=== PATIENT | male | born 1960 | race Caucasian/White ===

== ENCOUNTER 2016-09-02 13:25 | Inpatient (IN) | payer OTHER ==
[2016-09-02] MEDS ORDERED: Sodium Chloride 0.9% 1,000 ML PRIMARY IV ONE (13:43)
[2016-09-02] MEDS ORDERED: NORMAL SALINE 10 ML SYRINGE FLUSH IVP PRN ×2 (13:43→18:42)
--- NOTE | 2016-09-02 14:01 | PDOC ---
General Adult HPI - General Chief Complaint: General Medical Stated Complaint: TIRED FOR 3 WEEKS AND SORE ON RIGHT FOOT Date Seen by Provider: 09/02/16 Time Seen by Provider: 13:40 Source: POSITIVE: Patient Exam Limitations: POSITIVE: No limitations Nurse's Notes Reviewed & Considered: Yes - History of Present Illness Initial Comment: The patient is a 56-year-old male who presents to the emergency department with increased pain and swelling to the top of his right foot. He states that for 5 days ago he noticed some increased redness and swelling to the top of his right foot. The skin apparently started to peel and this morning opened up and drained. He reports increased pain over the past 24 hours especially with weightbearing. He denies any associated fevers or chills. He is a diabetic and his blood sugar this morning was 309. He denies any specific injury to the foot. He did recently travel to visit family over the holidays. He does have a history of gout for 30 years. Initially he thought he was just having an increased gout flare and took some extra allopurinol. Have you received a tetanus shot in the past 10 years?: No - Patient Home Medications Home Medications: Home Medications Allopurinol 300 mg PO DAILY 09/02/16 Aspirin [Aspir-Low] 81 mg PO DAILY 09/02/16 Captopril/Hydrochlorothiazide [Captopril-Hctz 25-25 mg Tablet] 1 each PO DAILY 09/02/16 Efinaconazole [Jublia] 09/02/16 Gemfibrozil 1,200 mg PO DAILY 09/02/16 Insulin Aspart [Novolog Flexpen] 09/02/16 Insulin Glargine SoloStar Inj [Lantus SoloStar Inj] 50 unit IM BID 09/02/16 - Patient Allergies Allergies/Adverse Reactions: Allergies Allergy/AdvReac Type Severity Reaction Status Date / Time No Known Allergies Allergy Unverified 09/02/16 13:36 Past Medical History - heen HEENT History: Denies History Cardiovascular History: Hypertension, Hyperlipidemia Respiratory History: Denies History Gastrointestinal History: Denies History Genitourinary History: Denies History Endocrine History: Type 2 Diabetes (insulin) Musculoskeletal History: Gout Neurological History: Denies History Blood Disorders: Denies History Psychiatric History: Denies History History of Sexually Transmitted Diseases: No Male Reproductive History: Denies History Cancer History: Denies History In Past Year Been Physically Harmed or Verbally Threatened: No History of MDRO: No Tobacco Use: Former Smoker Alcohol Use: Heavy Type of alcohol normally used: Hard Liquor How much alcohol do you normally drink a day?: rosa and water every night Substance Use Type: None Previous Surgical History: No Significant Family History: No pertinent family hx Past Medical History Reviewed: Reviewed - No Changes ROS - Limitations ROS Limitations: No Limitations Constitution: REPORTS: Other (He does report generalized fatigue for the past several weeks). DENIES: Chills, Fever Cardiovascular: REPORTS: Denies Cardiac Symptoms Respiratory: REPORTS: Denies Resp Symptoms Neurological: REPORTS: Denies Neuro Symptoms Gastrointestinal: REPORTS: Denies GI Symptoms Endocrine: REPORTS: Fatigue Eyes: REPORTS: Denies Symptoms ENT: REPORTS: Denies Symptoms General Adult Exam - General Appearance General Appearance: POSITIVE: Alert, Cooperative, No Acute Distress - HEENT HEENT: POSITIVE: Head Inspection Nml - Neck Neck: POSITIVE: Normal Inspection. NEGATIVE: Lymphadenopathy - Respiratory Respiratory: POSITIVE: No Respiratory Distress, Breath Sounds Normal - Cardiovascular Cardiovascular: POSITIVE: Regular Rate & Rhythm, No Murmur Peripheral Pulses: Dorsalis-pedis (R): 2+, Dorsalis-pedis (L): 2+ - Abdomen Abdomen: Soft: (All Quadrants), Denies Tenderness: (All Quadrants), No Distention: (All Quadrants) - Skin Skin: POSITIVE: Normal Color, No Rash - Extremities Additional Extremities Details: He does have venous stasis changes in the lower extremities bilaterally, examination of the right foot reveals an area of erythema and induration extending over the dorsum of the foot. There is some peeling skin. There is also an open area just proximal to the great toe on the dorsum of his foot. There is a palpable fluid collection just lateral to this open area. - Neurological / Psychological Neurological: POSITIVE: Other (No focal neurologic deficits) General Adult Progress - Results Reviewed by me Xrays/CTs/US Reviewed by me: Yes Discussed with Radiologist: Yes Radiology Findings: There is some erosion of the first metatarsal suspicious for osteomyelitis per radiologist. This was not initially appreciated on my evaluation of the x-ray prior to the radiology reading. Lab Results Reviewed: Yes Lab Results:: Laboratory Results 09/02/16 09/02/16 Range/Units 13:44 13:55 WBC 15.16 H (4.8-10.8) 10^3/uL RBC 4.88 (4.70-6.10) 10^6/uL Hgb 15.2 (14.0-18.0) g/dL Hct 44.3 (42.0-52.0) % MCV 90.8 H (80-90) FL MCH 31.1 H (27-31) PG MCHC 34.3 (33-37) g/dL RDW Std Deviation 46.1 (39-50) fL RDW Coeff of Lyndsey 14.1 (11.5-14.5) % Plt Count 194 (140-350) 10*3/uL MPV 11.0 (7.4-12.2) FL Immature Gran % (Auto) 0.5 (0-5) % Neut % (Auto) 87.6 H (50-80) % Lymph % (Auto) 5.3 L (10-50) % [place] % (Auto) 6.4 (5-15) % Eos % (Auto) 0.1 (0-8) % Baso % (Auto) 0.1 (0-1) % Immature Gran # (Auto) 0.07 10*3/UL Neut # (Auto) 13.28 10*3/UL Lymph # (Auto) 0.80 10*3/uL [place] # (Auto) 0.97 H (0.3-0.8) 10*3/UL Eos # (Auto) 0.02 10*3/UL Baso # (Auto) 0.02 10*3/UL WBC Morphology Comment Normal morphology (NORM) Plt Morphology Comment Normal morphology (NORM) RBC Morph Comment Normal morphology (NORM) ESR 69 H (0-15) MM/HR Sodium 126 L (135-145) meq/L Potassium 4.0 (3.8-5.2) meq/L Chloride 91 L (98-112) meq/L Carbon Dioxide 23 (23-33) meq/L Anion Gap 12 (5-20) BUN 31 H (7-22) mg/dL Creatinine 1.1 (0.70-1.50) mg/dL Estimated GFR > 60 (>60 ml/min/1.73m(2)) BUN/Creatinine Ratio 28.18 H (6-20) Glucose 340 H (78-110) mg/dL Calculated Osmolality 281.0 (267-292) mOsm/kg Lactic Acid 3.1 H (0.70-2.10) MMOL/L Uric Acid 5.2 (3.8-8.5) mg/dl Calcium 8.1 L (8.7-10.7) mg/dL Total Bilirubin 2.7 H (0.3-1.2) mg/dL AST 53 (21-57) IU/L ALT 49 (21-72) IU/L Alkaline Phosphatase 245 H (38-126) IU/L C-Reactive Protein 18.3 H (0.0-0.9) mg/dL Total Protein 7.5 (6.1-8.0) g/dL Albumin 2.8 L (3.5-4.8) g/dL Globulin 4.7 H (2.50-4.10) g/dL Albumin/Globulin Ratio 0.50 L (1.3-2.0) mg/g - Patient's Progress MDM / ED Course: Blood cultures and lactate were obtained with IV start. Bedside ultrasound was performed on the right foot and showed a large abscess cavity to the dorsum of the foot which appeared to be just under the surface of the skin. I had evaluated the patient's x-rays and did not appreciate any obvious sign of osteomyelitis however the radiology reading was suspicious for possible osteomyelitis in the first metatarsal. I had contacted Dr. Genao who is on- call for orthopedic surgery. He had made plans to take the patient to the operating room for incision and drainage of the abscess. In addition the hospitalist was contacted regarding admission for IV antibiotics which will be started after the I&D as well as diabetes management. These findings were discussed with the patient and he is in agreement with this plan. - Consult Consult (If Yes, Name of Consulting MD & Time Called): Yes (Dr. Genao at 1530) Consulting MD will see pt:: POSITIVE: [facility] Admit Counseled: POSITIVE: Patient, Family, RE: Lab Results, RE: Radiology Results, RE : DX Patient Care Time - Estimated PCT Patient Care Time (In Minutes): 50 Vital Signs - Recent Vital Signs Vital Signs: Vital Signs (Last 8 hours) Temp Pulse Resp BP Pulse Ox 09/02/16 16:05 98.6 F 96 22 122/99 94 09/02/16 13:39 97.6 F 104 H 22 135/92 91 - VS Reviewed Vital Signs Reviewed: Yes Discharge Clinical Impression: Abscess of right foot, Cellulitis of right foot, Diabetes mellitus, Hyperglycemia Discharge Disposition: Admit to Inpatient Condition: Fair Date Decision to Admit to Inpatient: 09/02/16 Time Decision to Admit to Inpatient: 16:00
[2016-09-02 14:07] LABS: BASOPHILS # (AUTO) 0.02 10*3/UL; BASOPHILS % (AUTO) 0.1 % (0-1); EOSINOPHILS % (AUTO) 0.1 % (0-8); HEMATOCRIT 44.3 % (42.0-52.0); HEMOGLOBIN 15.2 g/dL (14.0-18.0); IMM GRAN % (AUTO) 0.5 % (0-5); IMM GRAN# (AUTO) 0.07 10*3/UL; LYMPHOCYTES % (AUTO) 5.3 % (10-50); MEAN CORPUSCULAR HEMOGLOBIN 31.1 PG (27-31); MEAN CORPUSCULAR HGB CONC 34.3 g/dL (33-37); MONOCYTES # (AUTO) 0.97 10*3/UL (0.3-0.8); MONOCYTES % (AUTO) 6.4 % (5-15); NEUTROPHILS # (AUTO) 13.28 10*3/UL; NEUTROPHILS % (AUTO) 87.6 % (50-80); RDW COEFFICIENT OF VARIATION 14.1 % (11.5-14.5); RED BLOOD COUNT 4.88 10^6/uL (4.70-6.10); WHITE BLOOD COUNT 15.16 10^3/uL (4.8-10.8)
[2016-09-02 15:08] LABS: PLATELET MORPHOLOGY COMMENT NORMAL MORPHOLOGY (NORM)
[2016-09-02 15:27] LABS: ASPARTATE AMINO TRANSFERASE 53 IU/L (21-57); BILIRUBIN,TOTAL 2.7 mg/dL (0.3-1.2); BLOOD UREA NITROGEN 31 mg/dL (7-22); BUN/CREATININE RATIO 28.18 (6-20); CALCIUM 8.1 mg/dL (8.7-10.7); CHLORIDE 91 meq/L (98-112); CREATININE 1.1 mg/dL (0.70-1.50); EST GLOMERULAR FILTRATION > 60 (>60 ml/min/1.73m(2)); GLUCOSE 340 mg/dL (78-110); LACTATE 3.1 MMOL/L (0.70-2.10); SODIUM 126 meq/L (135-145); TOTAL PROTEIN 7.5 g/dL (6.1-8.0)
--- NOTE | 2016-09-02 15:27 | DI ---
HISTORY: Infection in the dorsal right foot. Discoloration. Weeping sore over the 1st metatarsal. COMPARISON: None available. FINDINGS: There is soft tissue edema in the base of the 1st metatarsal with bony erosion; suspicious for osteomyelitis. There is evidence of periarticular bony erosion in the 1st metatarsal phalangeal joint; can be seen in inflammatory arthritis. Septic arthritis cannot be excluded. No acute fractu re or subluxation seen. IMPRESSION: 1. There is soft tissue edema in the base of the 1st metatarsal with bony erosion; suspicious for ost eomyelitis. 2. Evidence of periarticular bony erosion in the 1st metatarsal phalangeal joint; can be seen in infl ammatory arthritis. Septic arthritis cannot be excluded. Please correlate with history. 3. No acute fracture or subluxation seen.
[2016-09-02 15:47] LABS: C-REACTIVE PROTEIN 18.3 mg/dL (0.0-0.9)
[2016-09-02] MEDS ORDERED: LIDOCAINE 2%/ EPI 1:200,000 - 20 ML VIAL ONE (16:38)
[2016-09-02] MEDS ORDERED: MIDAZOLAM 5 MG/1 ML ONE (16:38)
[2016-09-02] MEDS ORDERED: BACITRACIN 50,000 UNIT VIAL IRRIG ONE (16:39)
[2016-09-02] MEDS ORDERED: BUPIVACAINE 0.5% W/EPI MPF -30 ML VIAL IV ONE (16:39)
[2016-09-02] MEDS ORDERED: Sodium Chloride 0.9% vial 20 ML ONE (16:39)
[2016-09-02] MEDS ORDERED: fentaNYL Inj 100 MCG/2 ML VIAL ONE (16:39)
--- NOTE | 2016-09-02 16:54 | ORTHO.CON ---
Consult Note - Consult Consult Date: 09/02/16 Reason for Consult: PreOp Consulation : Ortho Requesting Physician: Jamie Muñoz MD Primary Care Provider: NONE NONE - History of Present Illness History of Present Illness: Patient is a 56-year-old male who is coming in today for evaluation to the emergency room for right foot area of swelling pain and recent drainage. Patient notes he's been feeling tired and a little under the weather for the last 3 weeks he notes that over the last week and a half he has been having some swelling to the foot where he would notice that he would go to work when he would come home the foot would be swollen but by the next morning it wouldn' t be completely gone in approximately 3 days ago he started to develop some redness on the top of the foot and today it started to peel some skin and drain. Patient's blood sugars of an elevated recently he has a history of gout he denies any penetrating trauma or injury. Patient denies any fevers chills or night sweats. Just not feeling very well. Past Medical History Tobacco Use: Former Smoker (Quit 20 years ago) Substance Use Type: None Alcohol Use: Other (Patient drinks a fifth the night) Medication / Allergies Home Medications: Home Medications Medication Instructions Recorded Confirmed Type Allopurinol 300 mg PO DAILY 09/02/16 09/02/16 History Aspirin [Aspir-Low] 81 mg PO DAILY 09/02/16 09/02/16 History Captopril/Hydrochlorothiazide 1 each PO DAILY 09/02/16 09/02/16 History [Captopril-Hctz 25-25 mg Tablet] Efinaconazole [Jublia] 09/02/16 09/02/16 History Gemfibrozil 1,200 mg PO DAILY 09/02/16 09/02/16 History Insulin Aspart [Novolog Flexpen] 09/02/16 History Insulin Glargine SoloStar Inj 50 unit IM BID 09/02/16 09/02/16 History [Lantus SoloStar Inj] Allergies/Adverse Reactions: Allergies Allergy/AdvReac Type Severity Reaction Status Date / Time No Known Allergies Allergy Unverified 09/02/16 13:36 Exam - - Exam: Examination shows that the right foot has venous stasis changes is quite red from just above the ankle going distally. He has an area where he has some dried blood and an area of possible drainage along the dorsal aspect of the foot. Patient has a swelling on the right foot dorsal aspect of the pedicle to the left I don't feel any tita fluctuance it feels firm. There is some mild fluid expressed with a squeezing around the first to second metatarsal region which comes out a wound which is proximal to the MTP joint. He has good ankle motion. Patient sensory exam is generally intact does have pain with palpation along the dorsal aspect of the foot is sensory exam to the right and left foot seems to be intact his extensor tendon motion is good he states it does not cause any significant pain or discomfort. Patient with brisk refill a lot of swelling do not feel a dorsalis pedis pulse and no feel a clear posterior tibial pulse. X-rays which were obtained show a lot of degenerative changes at to the foot to some calcifications within the arteries of the foot there is mild collapse to the midfoot and hindfoot region. Several areas where there looks like there may be some degenerative and possible cystic changes particularly at the first MTP on the medial aspect but I don't think this represents osteomyelitis bilaterally. There is also changes more proximally at the tarsometatarsal joint region and also several other areas of the foot and ankle. By report ultrasound was done at the bedside which showed a large abscess. - Vitals Vital Signs: Vital Signs Temperature 98.6 F Temperature Source Temporal Artery Scan Pulse Rate [Pulse Oximeter 96 Left] Respiratory Rate 22 Blood Pressure [Left Arm] 122/99 Pulse Ox 94 Oxygen Delivery Method Room Air Height 5 ft 10 in Weight 117.934 kg Results - Labs CBC and BMP: 09/02/16 13:55 09/02/16 13:55 Assessment and Plan - Assessment / Plan Additional Assessment/Plan Details: Impression patient with abscess dorsal aspect of right foot do not suspect osteomyelitis at the current time. Diabetes type II insulin-dependent. Gout Hypertension, asthma, hypercholesterolemia. Plan: At the current time we will plan on taking the patient to surgery for incision and drainage of this abscess. We'll obtain cultures and start him on IV antibiotics. He'll be admitted for IV antibiotics and infectious disease consult. Continue with his regular medications at the current time. We discussed the patient's current condition and clinical findings as it pertains to the current situation. Surgical versus nonsurgical options risks and benefits were discussed and reviewed. Options moving forward include but are not limited to continued choice to live with their current condition; evaluate their current condition further with imaging studies and/or diagnostic testing, etc.; treat problem/problems with surgical versus nonsurgical methods. The patient demonstrates a clear understanding of our discussion. All questions were answered. Surgical versus nonsurgical options risks and benefits were Discussed and reviewed. Risks include but are not limited to bleeding, infection, neurovascular damage, wound problems, deep vein thromboses, pulmonary embolism, need for further surgery, and loss of life and limb. Certainly any surgical procedure may not improve symptoms and potentially could makes symptoms worse. There are no guarantees implied with the discussion of surgical treatment. All questions were answered and the patient wishes to proceed with surgical treatment.
[2016-09-02] MEDS ORDERED: LIDOCAINE W/ SODIUM BICARB 0.5 ML SYR ONE (17:03)
[2016-09-02] MEDS ORDERED: Sodium Chloride 0.9% 100 ML IV ONE (17:14)
[2016-09-02] MEDS ORDERED: AMPICILLIN/SULBACTAM 3 GM VIAL IV ONE (17:14)
[2016-09-02] MEDS ORDERED: Sodium Chloride 0.9% 1,000 ML ONE (17:59)
--- NOTE | 2016-09-02 18:13 | CRNA.PROCE ---
Nerve Block Documentation - - Safety Measures: Time Out Taken, Site Verified - - Type of Nerve Block Used: Right Popliteal Fossa Block Position for Nerve Block: Prone Moniters Used During Block: EKG, SPO2, NIBP Oxygen Sumpplented: Yes Sedation Used - Enter Amount in Comment Field: Midazolam (mg): Yes (2mg iv), Fentanyl (mcg): Yes (50mcg iv) Skin Prep Used: ChloroPrep Technique: Nerve Stimulator Nerve Block Needle Used: 80 mm ProBlk II Stimulation Hz: 1.0 Stimulation Staring mA: 1.4 Stimulation Ending mA: 0.4 Local Anesthetic - Enter Amt in Comment Field: 0.5 % Bupivicaine with Epinephrine 1:200,000 (mL): Yes (20ml), 2 % Xylocaine with Epinephrine 1:200, 000 (mL): Yes (20ml)
--- NOTE | 2016-09-02 18:24 | PDOC ---
History and Physical - History of Present Illness Date and Time of Service: 09/02/2016 5:30 PM Chief Complaint: Tiredness of 3 weeks duration with elevated blood sugar in addition to swelling and redness on the dorsum of the right foot off 3 days duration History of Present Illness: This is a 56 years old male with medical history significant for history of diabetes, hypertension, hypertriglyceridemia and sleep apnea who presented to the emergency department with history of tiredness of 3 weeks' duration and fluctuations in his blood sugar but in addition he did notice swelling and redness off the right foot that started 3 days ago. There was no significant pain until today as he was unable to put weight on it. Because of that he came into the ER. He did report also there is some drainage from the skin today. His blood sugar was high today in the 300 range. Evaluation in the ER revealed cellulitis with abscess, x-ray of the foot questioned the possibility of osteomyelitis. Dr. Genao saw the patient and was taken to surgery. He is denying other symptoms. Past Medical History Medical History: 1. Diabetes type 2 on insulin. 2. Hypertension. 3. Gout. 4. Hypertriglyceridemia. 5. Sleep apnea not on CPAP Surgical History: No surgeries before Family History: Reviewed an Not Pertinent Past Social History: Patient used to smoke, no drugs, drinks fifth a day. Tobacco Use: Former Smoker (Quit 20 years ago) Substance Use Type: None Alcohol Use: Other (Patient drinks a fifth the night last time he had a drink was 3 days ago, he said he doesn't go into withdrawal if he doesn't drink) Medication / Allergies Home Medications: Home Medications Medication Instructions Recorded Confirmed Type Allopurinol 300 mg PO DAILY 09/02/16 09/02/16 History Aspirin [Aspir-Low] 81 mg PO DAILY 09/02/16 09/02/16 History Captopril/Hydrochlorothiazide 1 each PO DAILY 09/02/16 09/02/16 History [Captopril-Hctz 25-25 mg Tablet] Efinaconazole [Jublia] 09/02/16 09/02/16 History Gemfibrozil 1,200 mg PO DAILY 09/02/16 09/02/16 History Insulin Aspart [Novolog Flexpen] 09/02/16 History Insulin Glargine SoloStar Inj 50 unit IM BID 01/08/17 01/08/17 History [Lantus SoloStar Inj] Allergies/Adverse Reactions: Allergies Allergy/AdvReac Type Severity Reaction Status Date / Time No Known Allergies Allergy Unverified 09/02/16 20:06 Review of Systems - Review of Systems All Systems: Reviewed & No Additional Complaints Except as Stated Exam - Vitals Vital Signs: Vital Signs Temperature 98.6 F Temperature Source Temporal Artery Scan Pulse Rate [Pulse Oximeter 96 Left] Pulse Rate 92 Respiratory Rate 22 Blood Pressure [Left Arm] 122/99 Blood Pressure 122/99 Pulse Ox 94 Oxygen Flow Rate 2 Oxygen Delivery Method Nasal Cannula Height 5 ft 10 in Weight 260 lb - General General Appearance: POSITIVE: No Acute Distress, Morbidly Obese - Head Head Exam: POSITIVE: Normal Inspection, Atraumatic - Eye Eye Exam: POSITIVE: Normal Appearance - ENT ENT Exam: POSITIVE: Normal Exam - Neck Neck Exam: POSITIVE: Normal Inspection - Respiratory Respiratory Exam: POSITIVE: Clear to Auscultation - Bilaterally - Cardiovascular Cardiovascular Exam: POSITIVE: RRR - GI/Abdominal GI/Abdominal Exam: POSITIVE: Normal Bowel Sounds, Non Tender, Non Distended, Soft - Rectal Rectal Exam: POSITIVE: Deferred - External Exam: POSITIVE: Deferred - Extremities Additional Extremities Exam Details: Redness noted from the of the right ankle to the dorsum of the foot, in addition there is an area with some dried blood with swelling off the dorsum of the foot. - Back Back Exam: POSITIVE: Normal Inspection - Neurological Neurological Exam: POSITIVE: Alert, Oriented x 3, CN II-XII Intact, Moves All Extremities Equally - Psychiatric Psychiatric Exam: POSITIVE: Normal Affect - Integumentary Integumentary Exam: POSITIVE: Erythema Results - Labs CBC and BMP: 09/02/16 13:55 09/02/16 13:55 - Imaging Status: Report Reviewed by Me (X-ray of the right foot shows soft tissue edema in the base of the first metatarsal with bony erosion suspect for osteomyelitis , there is a periarticular bony erosion of the first metatarsal phalangeal joint can be seen in inflammatory arthritis) Assessment and Plan - Patient Problems (1) Abscess of right foot Current Visit: Yes Status: Acute Comment: He will have a I&D he will be given Unasyn. I think probably will add also vancomycin. (2) Diabetes Current Visit: Yes Status: Acute Comment: Same medication will put him on sliding scale (3) Hypertension Current Visit: Yes Status: Acute Comment: He is normally on a combination of captopril and HCTZ, because of the hyponatremia will DC that and will just put him on lisinopril (4) History of gout Current Visit: Yes Status: Acute Comment: Continue with allopurinol (5) Hyponatremia Current Visit: Yes Status: Acute Comment: Part of it may be secondary to the hyperglycemia and part of it may be secondary to the HCTZ will hold that
[2016-09-02] MEDS ORDERED: MORPHINE SULFATE 2 MG/1 ML IVP PRN (18:42)
[2016-09-02] MEDS ORDERED: ONDANSETRON 4 MG/2 ML VIAL IVP PRN (18:42)
[2016-09-02] MEDS ORDERED: Vancomycin-PHA to Dose IV PRN (19:28)
[2016-09-02] MEDS: Ampicillin/Sulbactam Inj 3 GM in Sodium Chloride 0.9% 100 ML IV SCH (19:34)
[2016-09-02] MEDS: Insulin Lispro Flexpen 300 UNIT/3 ML INSULN.PEN SUBCUT SCH (21:02)
[2016-09-02] MEDS: Insulin Glargine SoloStar Inj 100 UNIT/ML INSULN.PEN SUBCUT SCH (21:03)
[2016-09-02] MEDS: GEMFIBROZIL 600 MG TABLET PO SCH (21:03)
[2016-09-03] MEDS: Ampicillin/Sulbactam Inj 3 GM in Sodium Chloride 0.9% 100 ML IV SCH ×4 (01:00→19:55)
[2016-09-03 07:04] LABS: ASPARTATE AMINO TRANSFERASE 40 IU/L (21-57); BILIRUBIN,TOTAL 2.2 mg/dL (0.3-1.2); BLOOD UREA NITROGEN 29 mg/dL (7-22); CALCIUM 7.2 mg/dL (8.7-10.7); CHLORIDE 93 meq/L (98-112); EST GLOMERULAR FILTRATION > 60 (>60 ml/min/1.73m(2)); GLUCOSE 262 mg/dL (78-110); POTASSIUM 3.7 meq/L (3.8-5.2); SODIUM 126 meq/L (135-145); TOTAL PROTEIN 6.8 g/dL (6.1-8.0)
[2016-09-03 07:07] LABS: BASOPHILS # (AUTO) 0.01 10*3/UL; BASOPHILS % (AUTO) 0.1 % (0-1); EOSINOPHILS % (AUTO) 0.3 % (0-8); HEMATOCRIT 40.2 % (42.0-52.0); HEMOGLOBIN 13.7 g/dL (14.0-18.0); IMM GRAN % (AUTO) 0.7 % (0-5); LYMPHOCYTES # (AUTO) 0.77 10*3/uL; LYMPHOCYTES % (AUTO) 5.4 % (10-50); MEAN CORPUSCULAR HEMOGLOBIN 31.3 PG (27-31); MEAN CORPUSCULAR HGB CONC 34.1 g/dL (33-37); MEAN PLATELET VOLUME 10.7 FL (7.4-12.2); MONOCYTES # (AUTO) 0.94 10*3/UL (0.3-0.8); MONOCYTES % (AUTO) 6.6 % (5-15); NEUTROPHILS # (AUTO) 12.37 10*3/UL; NEUTROPHILS % (AUTO) 86.9 % (50-80); PLATELET MORPHOLOGY COMMENT NORMAL MORPHOLOGY (NORM); RDW COEFFICIENT OF VARIATION 14.4 % (11.5-14.5); RED BLOOD COUNT 4.38 10^6/uL (4.70-6.10); WHITE BLOOD COUNT 14.23 10^3/uL (4.8-10.8)
[2016-09-03] MEDS: Sodium Chloride 0.9% 1,000 ML PRIMARY IV SCH ×3 (07:34→19:54)
[2016-09-03] MEDS: Insulin Lispro Flexpen 300 UNIT/3 ML INSULN.PEN SUBCUT SCH ×4 (08:45→20:47)
--- NOTE | 2016-09-03 08:58 | ORTHO.PROG ---
Last Taken Vital Signs: Vital Signs - Last Taken Temperature 98.6 F 09/03/16 06:51 Pulse Rate 102 H 09/03/16 06:51 Respiratory Rate 19 09/03/16 06:51 Blood Pressure 158/76 09/03/16 06:51 Pulse Ox 90 09/03/16 06:51 Subjective: Patient notes his pain in the right foot is less today than it was yesterday. Objective: Right foot dressing is in place her is no significant swelling he has gentle motion of his toes with flexion-extension states he gets some slight discomfort with that dressing is clean and dry. Brisk refill normal sensory exam. Gram stain showed gram-positive cocci await cultures Laboratory Results 09/02/16 09/02/16 09/03/16 Range/Units 13:44 13:55 06:10 WBC 15.16 H 14.23 H (4.8-10.8) 10^3/uL RBC 4.88 4.38 L (4.70-6.10) 10^6/uL Hgb 15.2 13.7 L (14.0-18.0) g/dL Hct 44.3 40.2 L (42.0-52.0) % MCV 90.8 H 91.8 H (80-90) FL MCH 31.1 H 31.3 H (27-31) PG MCHC 34.3 34.1 (33-37) g/dL RDW Std Deviation 46.1 47.5 (39-50) fL RDW Coeff of Lyndsey 14.1 14.4 (11.5-14.5) % Plt Count 194 159 (140-350) 10*3/uL MPV 11.0 10.7 (7.4-12.2) FL Immature Gran % (Auto) 0.5 0.7 (0-5) % Neut % (Auto) 87.6 H 86.9 H (50-80) % Lymph % (Auto) 5.3 L 5.4 L (10-50) % [place] % (Auto) 6.4 6.6 (5-15) % Eos % (Auto) 0.1 0.3 (0-8) % Baso % (Auto) 0.1 0.1 (0-1) % Immature Gran # (Auto) 0.07 0.10 10*3/UL Neut # (Auto) 13.28 12.37 10*3/UL Lymph # (Auto) 0.80 0.77 10*3/uL [place] # (Auto) 0.97 H 0.94 H (0.3-0.8) 10*3/UL Eos # (Auto) 0.02 0.04 10*3/UL Baso # (Auto) 0.02 0.01 10*3/UL WBC Morphology Comment Normal morphology Normal morphology (NORM) Plt Morphology Comment Normal morphology Normal morphology (NORM) RBC Morph Comment Normal morphology Normal morphology (NORM) ESR 69 H (0-15) MM/HR Sodium 126 L 126 L (135-145) meq/L Potassium 4.0 3.7 L (3.8-5.2) meq/L Chloride 91 L 93 L (98-112) meq/L Carbon Dioxide 23 24 (23-33) meq/L Anion Gap 12 9 (5-20) BUN 31 H 29 H (7-22) mg/dL Creatinine 1.1 1.0 (0.70-1.50) mg/dL Estimated GFR > 60 > 60 (>60 ml/min/1.73m(2)) BUN/Creatinine Ratio 28.18 H 29.00 H (6-20) Glucose 340 H 262 H (78-110) mg/dL Calculated Osmolality 281.0 276.0 (267-292) mOsm/kg Lactic Acid 3.1 H (0.70-2.10) MMOL/L Uric Acid 5.2 (3.8-8.5) mg/dl Calcium 8.1 L 7.2 L (8.7-10.7) mg/dL Total Bilirubin 2.7 H 2.2 H (0.3-1.2) mg/dL AST 53 40 (21-57) IU/L ALT 49 49 (21-72) IU/L Alkaline Phosphatase 245 H 234 H (38-126) IU/L C-Reactive Protein 18.3 H (0.0-0.9) mg/dL Total Protein 7.5 6.8 (6.1-8.0) g/dL Albumin 2.8 L 2.5 L (3.5-4.8) g/dL Globulin 4.7 H 4.3 H (2.50-4.10) g/dL Albumin/Globulin Ratio 0.50 L 0.50 L (1.3-2.0) mg/g Microbiology 09/02/16 17:23 Abscess - Right Side Gram Stain - Final Assessment: Patient insulin-dependent diabetic with right foot abscess status post incision and drainage Plan: Patient will continue with IV antibiotics and await cultures. Possible need for further incision and drainage versus a irrigation debridement. We'll begin wound care right foot. We will watch carefully. May need to look at some imaging study if is not responding well.
[2016-09-03] MEDS ORDERED: HYDROCHLOROTHIAZIDE PO SCH (09:00)
[2016-09-03] MEDS ORDERED: CAPTOPRIL PO SCH (09:00)
[2016-09-03] MEDS ORDERED: GEMFIBROZIL 600 MG TABLET PO SCH (09:00)
[2016-09-03] MEDS: ASPIRIN EC 81 MG TABLET PO SCH (10:00)
[2016-09-03] MEDS: ALLOPURINOL 300 MG TABLET PO SCH (10:00)
[2016-09-03] MEDS: ENOXAPARIN SODIUM 30 MG/0.3 ML SYRINGE SUBCUT SCH (10:00)
[2016-09-03] MEDS: Insulin Glargine SoloStar Inj 100 UNIT/ML INSULN.PEN SUBCUT SCH ×2 (10:00→20:42)
[2016-09-03] MEDS: LISINOPRIL 10 MG TABLET PO SCH (10:01)
[2016-09-03] MEDS: GEMFIBROZIL 600 MG TABLET PO SCH ×2 (10:01→20:42)
[2016-09-03] MEDS: HYDROcodone-APAP 7.5 MG-325 MG TABLET PO PRN (10:09)
--- NOTE | 2016-09-03 13:06 | PDOC(PROG) ---
Date and Time of Service: 09/03/2015, 1304 Interval History: No complaints of chest pain or shortness breath. The pain is controlled in the foot. Denies neuropathy. No nausea or vomiting. Blood cultures, all 4 bottles , positive for gram-positive cocci, final ID pending. Objective : Data - Labs CBC and BMP: 09/03/16 06:10 09/03/16 06:10 Labs - Last 24 Hours: Laboratory Results 09/03/16 09/03/16 Range/Units 06:10 08:35 WBC 14.23 H (4.8-10.8) 10^3/uL RBC 4.38 L (4.70-6.10) 10^6/uL Hgb 13.7 L (14.0-18.0) g/dL Hct 40.2 L (42.0-52.0) % MCV 91.8 H (80-90) FL MCH 31.3 H (27-31) PG MCHC 34.1 (33-37) g/dL RDW Std Deviation 47.5 (39-50) fL RDW Coeff of Lyndsey 14.4 (11.5-14.5) % Plt Count 159 (140-350) 10*3/uL MPV 10.7 (7.4-12.2) FL Immature Gran % (Auto) 0.7 (0-5) % Neut % (Auto) 86.9 H (50-80) % Lymph % (Auto) 5.4 L (10-50) % Hanson % (Auto) 6.6 (5-15) % Eos % (Auto) 0.3 (0-8) % Baso % (Auto) 0.1 (0-1) % Immature Gran # (Auto) 0.10 10*3/UL Neut # (Auto) 12.37 10*3/UL Lymph # (Auto) 0.77 10*3/uL Hanson # (Auto) 0.94 H (0.3-0.8) 10*3/UL Eos # (Auto) 0.04 10*3/UL Baso # (Auto) 0.01 10*3/UL WBC Morphology Comment Normal morphology (NORM) Plt Morphology Comment Normal morphology (NORM) RBC Morph Comment Normal morphology (NORM) Sodium 126 L (135-145) meq/L Potassium 3.7 L (3.8-5.2) meq/L Chloride 93 L (98-112) meq/L Carbon Dioxide 24 (23-33) meq/L Anion Gap 9 (5-20) BUN 29 H (7-22) mg/dL Creatinine 1.0 (0.70-1.50) mg/dL Estimated GFR > 60 (>60 ml/min/1.73m(2)) BUN/Creatinine Ratio 29.00 H (6-20) Glucose 262 H (78-110) mg/dL Calculated Osmolality 276.0 (267-292) mOsm/kg Lactic Acid 1.1 (0.70-2.10) MMOL/L Calcium 7.2 L (8.7-10.7) mg/dL Total Bilirubin 2.2 H (0.3-1.2) mg/dL AST 40 (21-57) IU/L ALT 49 (21-72) IU/L Alkaline Phosphatase 234 H (38-126) IU/L Total Protein 6.8 (6.1-8.0) g/dL Albumin 2.5 L (3.5-4.8) g/dL Globulin 4.3 H (2.50-4.10) g/dL Albumin/Globulin Ratio 0.50 L (1.3-2.0) mg/g Objective : Exam - General General Appearance: No Acute Distress, Cooperative Additional General Exam Details: Vital Signs - Last Taken Temperature 98.9 F 09/03/16 10:57 Pulse Rate 106 H 09/03/16 10:57 Respiratory Rate 19 09/03/16 10:57 Blood Pressure 125/70 09/03/16 10:57 Pulse Ox 90 09/03/16 10:57 - Eye Eye Exam: No Scleral Icterus - Respiratory Respiratory Exam: Clear to Auscultation - Bilaterally, Breathing Non Labored - Cardiovascular Cardiovascular Exam: RRR, No Murmur, No Clicks, No Gallops, No Rubs, No JVD - GI/Abdominal GI/Abdominal Exam: Normal Bowel Sounds, Non Tender, Non Distended, Soft - Extremities Extremities Exam: No Clubbing Present, No Cyanosis Present Additional Extremities Exam Details: Right foot was dressed, incision is clean, dry, and intact, open with iodoform gauze in place. Some surrounding erythema, but not tender to palpation. - Neurological Neurological Exam: Alert, Oriented x 3, No Facial Droop, Speech Intact / Clear, Moves All Extremities Equally - Psychiatric Psychiatric Exam: Normal Affect, Normal Mood Assessment and Plan - Patient Problems (1) Diabetic infection of right foot Current Visit: Yes Status: Acute (2) Abscess of right foot Current Visit: Yes Status: Acute (3) Poorly controlled type 2 diabetes mellitus Current Visit: Yes Status: Acute (4) Hypertension Current Visit: Yes Status: Acute Qualifiers: Hypertension type: essential hypertension Qualified Description: Essential hypertension Qualifier Code(s): (I10) Essential (primary) hypertension (5) Gouty arthropathy Current Visit: Yes Status: Acute - Assessment / Plan Additional Assessment/Plan Details: Continue antibiotics, Unasyn and vancomycin, day #2 today. Still awaiting final ID from cultures. Repeat blood cultures tomorrow, and if negative at 48 hours, consider PICC line placement. If positive in the blood for MRSA, may need upwards of 6 weeks of IV antibiotic therapy, I will discuss with infectious disease and try to get the patient arrange an appointment in follow-up. If this infection shows poor signs of healing, may need to consider amputation if infection worsens. At this point, the patient wants to try IV antibiotics before any such ideas. With daily wound care which can be arranged through our physical therapy department in [place], and antibiotics hopefully as an outpatient at home, this could be watched in conjunction with infectious disease and orthopedics once we know the second set of blood cultures is negative and the bacteremia has cleared. Despite bacteremia, patient is not septic at this time. The patient has poorly controlled diabetes, increase Lantus to 55 units twice a day and adjust as necessary to improve diabetes control.
[2016-09-04] MEDS: Ampicillin/Sulbactam Inj 3 GM in Sodium Chloride 0.9% 100 ML IV SCH ×2 (01:04→07:30)
[2016-09-04] MEDS: HYDROcodone-APAP 7.5 MG-325 MG TABLET PO PRN ×2 (02:02→20:33)
[2016-09-04] MEDS: KETOROLAC 30 MG/1 ML VIAL IVP PRN (02:12)
[2016-09-04] MEDS: Insulin Lispro Flexpen 300 UNIT/3 ML INSULN.PEN SUBCUT SCH ×4 (07:09→20:28)
[2016-09-04 07:52] LABS: BASOPHILS # (AUTO) 0.04 10*3/UL; BASOPHILS % (AUTO) 0.3 % (0-1); EOSINOPHILS % (AUTO) 1.1 % (0-8); HEMATOCRIT 42.4 % (42.0-52.0); HEMOGLOBIN 14.8 g/dL (14.0-18.0); IMM GRAN % (AUTO) 1.2 % (0-5); IMM GRAN# (AUTO) 0.19 10*3/UL; LYMPHOCYTES # (AUTO) 1.86 10*3/uL; LYMPHOCYTES % (AUTO) 11.6 % (10-50); MEAN CORPUSCULAR HGB CONC 34.9 g/dL (33-37); MEAN PLATELET VOLUME 10.6 FL (7.4-12.2); MONOCYTES # (AUTO) 0.86 10*3/UL (0.3-0.8); MONOCYTES % (AUTO) 5.4 % (5-15); NEUTROPHILS # (AUTO) 12.85 10*3/UL; NEUTROPHILS % (AUTO) 80.4 % (50-80); RDW COEFFICIENT OF VARIATION 14.5 % (11.5-14.5); RED BLOOD COUNT 4.62 10^6/uL (4.70-6.10); WHITE BLOOD COUNT 15.97 10^3/uL (4.8-10.8)
[2016-09-04 07:53] LABS: CALCIUM 7.8 mg/dL (8.7-10.7); CREATININE 1.3 mg/dL (0.70-1.50); LDL CHOLESTEROL,CALCULATED 23.6 mg/dL; POTASSIUM 3.7 meq/L (3.8-5.2)
[2016-09-04 07:55] LABS: PLATELET MORPHOLOGY COMMENT NORMAL MORPHOLOGY (NORM)
[2016-09-04 08:03] LABS: HEMOGLOBIN A1C 9.14 % (4.2-6.0); MEAN BLOOD GLUCOSE (CALC) 218.362 mg/dL
[2016-09-04] MEDS: Insulin Glargine SoloStar Inj 100 UNIT/ML INSULN.PEN SUBCUT SCH ×2 (08:25→20:23)
[2016-09-04] MEDS: ENOXAPARIN SODIUM 30 MG/0.3 ML SYRINGE SUBCUT SCH (08:26)
[2016-09-04] MEDS: ALLOPURINOL 300 MG TABLET PO SCH (08:26)
[2016-09-04] MEDS: LISINOPRIL 10 MG TABLET PO SCH (08:26)
[2016-09-04] MEDS: GEMFIBROZIL 600 MG TABLET PO SCH ×2 (08:26→20:23)
[2016-09-04] MEDS: Sodium Chloride 0.9% 1,000 ML PRIMARY IV SCH ×3 (08:27→22:30)
[2016-09-04] MEDS: ASPIRIN EC 81 MG TABLET PO SCH (08:29)
--- NOTE | 2016-09-04 10:14 | PTI REPORT ---
Thank you for the referral of Kuldip Obregon. He was seen on 09/03/16 for an inpatient evaluation secondary to an I&D of his right foot. SUBJECTIVE: The patient is a 56-year-old male. The patient is a diabetic that currently lives by himself in [place]. He states that he doesn't really know what happened or when it started coming about, but he noticed about three days ago his foot becoming more sore and painful and smelling worse than it usually does. He states that he came to the emergency room where they went through an I &D yesterday. The patient is currently on antibiotics through an IV. PAST MEDICAL HISTORY: Past medical history can be found in the patient's medical record. OBJECTIVE FINDINGS: Pain: The patient rates his pain as a 1/10 on the verbal analog scale (0=no pain , 10=worst pain). Sensation: The patient states that he has been a diabetic for years and has significant radiculopathy of both feet. He states he can feel his feet but the sensations are very faint and diminished. ASSESSMENT: Problem List: Open wound Short-Term Goals: To be met by discharge from inpatient: Patient will promote sterile wound healing. Long-Term Goals: To be met following discharge from inpatient: Patient may benefit from outpatient therapy in our [place] facility upon discharge. TREATMENT PLAN: Patient will be seen B.I.D during the week and one time per day over the weekend as an inpatient for redressing of the wounds and changing of the Iodoform packing material. INITIAL TREATMENT: Treatment today consisted of the initial evaluation followed by a dressing change. We changed the wound with two Iodoform drains and packing materials followed by 4X4s, sterile Kerlix, and an over dressing of an MADDIE wrap. ERIKA
--- NOTE | 2016-09-04 12:43 | PDOC(PROG) ---
Date and Time of Service: 09/04/2015, 1240 Interval History: No chest pain and no shortness breath. No nausea or vomiting. Blood cultures are back from hospital stay and he was positive for MSSA bacteremia. No murmurs on exam. States that he's been weak and has been using a cane at home and felt like he probably needed a walker. Objective : Data - Labs CBC and BMP: 09/04/16 07:38 09/04/16 07:38 Labs - Last 24 Hours: Laboratory Results 09/04/16 Range/Units 07:38 WBC 15.97 H (4.8-10.8) 10^3/uL RBC 4.62 L (4.70-6.10) 10^6/uL Hgb 14.8 (14.0-18.0) g/dL Hct 42.4 (42.0-52.0) % MCV 91.8 H (80-90) FL MCH 32.0 H (27-31) PG MCHC 34.9 (33-37) g/dL RDW Std Deviation 47.3 (39-50) fL RDW Coeff of Lyndsey 14.5 (11.5-14.5) % Plt Count 230 (140-350) 10*3/uL MPV 10.6 (7.4-12.2) FL Immature Gran % (Auto) 1.2 (0-5) % Neut % (Auto) 80.4 H (50-80) % Lymph % (Auto) 11.6 (10-50) % Pender % (Auto) 5.4 (5-15) % Eos % (Auto) 1.1 (0-8) % Baso % (Auto) 0.3 (0-1) % Immature Gran # (Auto) 0.19 10*3/UL Neut # (Auto) 12.85 10*3/UL Lymph # (Auto) 1.86 10*3/uL Pender # (Auto) 0.86 H (0.3-0.8) 10*3/UL Eos # (Auto) 0.17 10*3/UL Baso # (Auto) 0.04 10*3/UL WBC Morphology Comment Normal morphology (NORM) Plt Morphology Comment Normal morphology (NORM) RBC Morph Comment Normal morphology (NORM) Sodium 130 L (135-145) meq/L Potassium 3.7 L (3.8-5.2) meq/L Chloride 98 (98-112) meq/L Carbon Dioxide 21 L (23-33) meq/L Anion Gap 11 (5-20) BUN 26 H (7-22) mg/dL Creatinine 1.3 (0.70-1.50) mg/dL Estimated GFR 57 (>60 ml/min/1.73m(2)) BUN/Creatinine Ratio 20.00 (6-20) Glucose 129 H (78-110) mg/dL Mean Blood Glucose 218.362 mg/dL Hemoglobin A1c 9.14 H (4.2-6.0) % Calculated Osmolality 276.0 (267-292) mOsm/kg Calcium 7.8 L (8.7-10.7) mg/dL Triglycerides 97 (44-200) mg/dL Cholesterol 56 L (120-200) mg/dL LDL Cholesterol, Calc 23.600 mg/dL VLDL Cholesterol 19 (0-40) mg/dL HDL Cholesterol 13 L (40-150) mg/dL Cholesterol/HDL Ratio 4.30 H (0-4.0) RATIO Vancomycin Trough 12.86 (10.0-20.0) mcg/mL Objective : Exam - General General Appearance: No Acute Distress, Cooperative Additional General Exam Details: Vital Signs - Last Taken Temperature 98.6 F 09/04/16 10:55 Pulse Rate 98 09/04/16 10:55 Respiratory Rate 17 09/04/16 10:55 Blood Pressure 106/66 09/04/16 10:55 Pulse Ox 92 09/04/16 10:55 - Eye Eye Exam: No Scleral Icterus - Respiratory Respiratory Exam: Clear to Auscultation - Bilaterally, Breathing Non Labored - Cardiovascular Cardiovascular Exam: RRR, No Murmur, No Clicks, No Gallops, No Rubs, No JVD - GI/Abdominal GI/Abdominal Exam: Normal Bowel Sounds, Non Tender, Non Distended, Soft - Extremities Extremities Exam: No Clubbing Present, No Edema Present, No Cyanosis Present Additional Extremities Exam Details: Maybe trace lower extremity edema is in the ankles. - Neurological Neurological Exam: Alert, Oriented x 3, No Facial Droop, Speech Intact / Clear, Moves All Extremities Equally - Psychiatric Psychiatric Exam: Normal Affect, Normal Mood - Integumentary Additional Integumentary Exam Details: Right foot is dressed, dressing is clean, dry, intact. Assessment and Plan - Patient Problems (1) Staphylococcus aureus bacteremia Current Visit: Yes Status: Acute (2) Diabetic infection of right foot Current Visit: Yes Status: Acute (3) Abscess of right foot Current Visit: Yes Status: Acute (4) Poorly controlled type 2 diabetes mellitus Current Visit: Yes Status: Acute (5) Hypertension Current Visit: Yes Status: Acute Qualifiers: Hypertension type: essential hypertension Qualified Description: Essential hypertension Qualifier Code(s): (I10) Essential (primary) hypertension (6) Gouty arthropathy Current Visit: Yes Status: Acute - Assessment / Plan Additional Assessment/Plan Details: I will repeat blood cultures today, and if negative at 48 hours, and PICC line can be placed. Call [facility] infectious [facility] and try to schedule an appointment for outpatient IV antibiotics and possible PICC line therapy. If it turns out the patient is not a candidate for home IV antibiotics, will do infusions here. I think he'll need at least 4 weeks of antibiotic therapy given his foot infection and bacteremia. This is an a situation with the patient that his immunocompromised with diabetes mellitus type II that is insulin-dependent. We will get physical therapy and occupational therapy for the patient's weakness. Wound care therapy as an outpatient. Our physical therapy group can do that as an outpatient as they have the clinic in [place]. Arrange follow-up with Dr. Genao on an outpatient basis. Both Dr. Genao and myself do believe that the patient would benefit from an MRI scan to make sure there is no osteomyelitis, and it appears that the infection was superior to bone, but in the setting of surgery we are both worried about abnormal signal from inflammation so we will get that study in a couple of weeks. Discussed the above plan with the patient and he agreed.
[2016-09-04] MEDS: ceFAZolin Inj 2gm (Premix) 2 GM in Dextrose 1 BAG IV SCH ×2 (13:22→20:23)
--- NOTE | 2016-09-04 14:54 | PT AM DAY ---
Diagnosis : I&D of Right Foot AM - Physical Therapy S: The patient reports he still doesn't have any pain in his foot and is concerned about how long he is going to be staying in the hospital. He has also heard rumors of possible amputation. O: Today's therapy consisted of dressing removal followed by cleansing the wound area with wound cleanser and repacking with Iodoform, ABD pad, Kerlix, and Coban. The wound was measured today and presented with a 4 centimeter incision; from the 12 o'clock to 6 o'clock position it was 5.5 centimeters, from the 9 o'clock position it was 3.3 centimeters from the incision, and at the 3 o'clock position it was 3.1 centimeters from the incision with a 3.2 centimeters depth. The wound presented with heavy sanguineous drainage with approximately 5% strike through through the entire bandage upon removal. A: The patient believes at this time the patient would be a candidate for a wound vac. The therapist spoke with Dr. Genao in concerns to this; however , more information will be required from the patient, specifically regarding insurance. The patient reports he has [employer] insurance; however, currently no insurance has been filed. P: Continue seeing patient BID during the week and one time per day over the weekend based on wound presentation. We will look into obtaining a negative pressure device, depending on insurance type as well as evaluating for both PT and OT for generalized mobility and strengthening. MTDD
[2016-09-04] MEDS: metFORMIN 500 MG TABLET PO SCH (16:31)
--- NOTE | 2016-09-04 18:09 | ORTHO.PROG ---
Last Taken Vital Signs: Vital Signs - Last Taken Temperature 97.2 F 09/04/16 16:03 Pulse Rate 95 09/04/16 16:03 Respiratory Rate 18 09/04/16 16:03 Blood Pressure 107/62 09/04/16 16:03 Pulse Ox 92 09/04/16 16:03 Subjective: Patient notes very little right foot pain or discomfort Objective: Wound changed no significant drainage and swelling is going down as well as redness. He has reasonable motion of his toes. Laboratory Results 09/04/16 Range/Units 07:38 WBC 15.97 H (4.8-10.8) 10^3/uL RBC 4.62 L (4.70-6.10) 10^6/uL Hgb 14.8 (14.0-18.0) g/dL Hct 42.4 (42.0-52.0) % MCV 91.8 H (80-90) FL MCH 32.0 H (27-31) PG MCHC 34.9 (33-37) g/dL RDW Std Deviation 47.3 (39-50) fL RDW Coeff of Lyndsey 14.5 (11.5-14.5) % Plt Count 230 (140-350) 10*3/uL MPV 10.6 (7.4-12.2) FL Immature Gran % (Auto) 1.2 (0-5) % Neut % (Auto) 80.4 H (50-80) % Lymph % (Auto) 11.6 (10-50) % Mckenzie % (Auto) 5.4 (5-15) % Eos % (Auto) 1.1 (0-8) % Baso % (Auto) 0.3 (0-1) % Immature Gran # (Auto) 0.19 10*3/UL Neut # (Auto) 12.85 10*3/UL Lymph # (Auto) 1.86 10*3/uL Mckenzie # (Auto) 0.86 H (0.3-0.8) 10*3/UL Eos # (Auto) 0.17 10*3/UL Baso # (Auto) 0.04 10*3/UL WBC Morphology Comment Normal morphology (NORM) Plt Morphology Comment Normal morphology (NORM) RBC Morph Comment Normal morphology (NORM) Sodium 130 L (135-145) meq/L Potassium 3.7 L (3.8-5.2) meq/L Chloride 98 (98-112) meq/L Carbon Dioxide 21 L (23-33) meq/L Anion Gap 11 (5-20) BUN 26 H (7-22) mg/dL Creatinine 1.3 (0.70-1.50) mg/dL Estimated GFR 57 (>60 ml/min/1.73m(2)) BUN/Creatinine Ratio 20.00 (6-20) Glucose 129 H (78-110) mg/dL Mean Blood Glucose 218.362 mg/dL Hemoglobin A1c 9.14 H (4.2-6.0) % Calculated Osmolality 276.0 (267-292) mOsm/kg Calcium 7.8 L (8.7-10.7) mg/dL Triglycerides 97 (44-200) mg/dL Cholesterol 56 L (120-200) mg/dL LDL Cholesterol, Calc 23.600 mg/dL VLDL Cholesterol 19 (0-40) mg/dL HDL Cholesterol 13 L (40-150) mg/dL Cholesterol/HDL Ratio 4.30 H (0-4.0) RATIO Vancomycin Trough 12.86 (10.0-20.0) mcg/mL Microbiology 09/02/16 13:55 Blood Culture - Final Blood Staphylococcus Aureus 09/02/16 14:00 Blood Culture - Final Blood Staphylococcus Aureus 09/02/16 17:23 Gram Stain - Final Abscess - Right Side Anaerobic Culture - Final Aerobic Culture - Final Staphylococcus Aureus Assessment: Right foot abscess staph aureus sensitive to oxacillin and pretty much everything except for benzyl penicillin Plan: Continue with antibiotics and wound care we discussed with therapy possibly a wound VAC but it'll depend on whether his insurance allows it otherwise well to just continue with regular wound care which with will be prolonged.
[2016-09-05] MEDS: ceFAZolin Inj 2gm (Premix) 2 GM in Dextrose 1 BAG IV SCH ×3 (04:55→19:50)
[2016-09-05] MEDS: Insulin Lispro Flexpen 300 UNIT/3 ML INSULN.PEN SUBCUT SCH ×4 (09:02→20:51)
[2016-09-05] MEDS: LISINOPRIL 10 MG TABLET PO SCH (09:24)
[2016-09-05] MEDS: ASPIRIN EC 81 MG TABLET PO SCH (09:24)
[2016-09-05] MEDS: ALLOPURINOL 300 MG TABLET PO SCH (09:24)
[2016-09-05] MEDS: ENOXAPARIN SODIUM 30 MG/0.3 ML SYRINGE SUBCUT SCH (09:25)
[2016-09-05] MEDS: metFORMIN 500 MG TABLET PO SCH ×2 (09:25→17:25)
[2016-09-05] MEDS: GEMFIBROZIL 600 MG TABLET PO SCH ×2 (09:25→20:52)
[2016-09-05] MEDS: Sodium Chloride 0.9% 1,000 ML PRIMARY IV SCH (09:26)
[2016-09-05] MEDS: Insulin Glargine SoloStar Inj 100 UNIT/ML INSULN.PEN SUBCUT SCH ×4 (09:43→20:56)
--- NOTE | 2016-09-05 10:37 | PTI REPORT ---
Thank you for the referral of Kuldip Obregon. He was seen on 09/04/16 for an inpatient evaluation secondary to generalized weakness. SUBJECTIVE: The patient is a 56-year-old male. The patient reports he is unsure how the initial injury occurred. He reports he is not and has not experienced pain since the onset of the initial injury. PAST MEDICAL HISTORY: Past medical history can be found in the patient's medical record. OBJECTIVE FINDINGS: Bed mobility: The patient demonstrates adequate strength, endurance, and range of motion to transfer from supine to sitting edge of bed. Transfers: The patient is able to transfer from sitting edge of bed to standing using standard walker for upper extremity support. Ambulation: The patient demonstrates the ability to ambulate using standard walker up to 50 feet during today's evaluation. ASSESSMENT: The patient exhibits adequate strength and endurance to perform functional bed mobility and ambulation up to 50 feet using standard walker. The patient is unwilling to comply with non weight-bearing restriction. Skilled physical therapy is necessary at this time to improve strength and function. Problem List: Decreased strength Decreased endurance Unwillingness to comply with non weight-bearing restriction Short-Term Goals: To be met by discharge from inpatient: Patient will demonstrate ability to ambulate up to 100 feet with non weight- bearing restriction on right lower extremity using standard walker for in home ambulation. Patient will demonstrate compliance with non weight-bearing restriction on right lower extremity at least 50% of the time. Long-Term Goals: To be met following discharge from inpatient: Patient will be seen by outpatient physical therapy. Patient will demonstrate ability to ambulate up to 300 feet, non weight-bearing on right lower extremity using standard walker for community ambulation. Patient will demonstrate compliance with non weight-bearing restriction on right lower extremity 100% of the time. TREATMENT PLAN: Patient will be seen B.I.D during the week and one time per day over the weekend as an inpatient to address the above goals and objectives. INITIAL TREATMENT: Treatment today consisted of the initial evaluation followed by gait training using standard walker x50 feet with verbal and visual cues from physical therapist to maintain non weight-bearing restriction on right lower extremity. The patient demonstrated unwillingness to comply with non weight-bearing restriction on right lower extremity. The patient was educated on performing ankle pumps, straight leg raises, and heel slides 3-5 times a day for general strengthening and strength maintenance demonstrated by physical therapist using verbal, visual, and tactile cues. Dictated by: HOMER Queen Supervised by: MIGUEL Landers
[2016-09-05] MEDS ORDERED: POTASSIUM CHLORIDE 20 MEQ TAB PO ONE (11:54)
[2016-09-05] MEDS: KETOROLAC 30 MG/1 ML VIAL IVP PRN (13:16)
[2016-09-05] MEDS: HYDROcodone-APAP 7.5 MG-325 MG TABLET PO PRN ×2 (13:17→20:55)
--- NOTE | 2016-09-05 13:54 | PDOC(PROG) ---
Date and Time of Service: 09/05/2016, 1425 Interval History: No chest pain and no shortness breath. Patient states he "hurts all over". No nausea or vomiting. Foot does not hurt specifically. I discussed with Dr. Genao and he like to do a wound VAC when we can arrange for this. We'll try to do this on the outside of the hospital. Objective : Data - Labs CBC and BMP: 09/04/16 07:38 09/04/16 07:38 Labs - Last 24 Hours: Laboratory Results 09/04/16 Range/Units 07:38 Iron 40 L (50 - 150) mcg/dL TIBC 132 L (250 - 400) mcg/dL % Saturation 30 (14 - 50) % Vitamin B12 >1400 H (180 - 914) ng/L Folate >20.0 (>=4.0) mcg/L Objective : Exam - General General Appearance: No Acute Distress, Cooperative Additional General Exam Details: Vital Signs - Last Taken Temperature 98.8 F 09/05/16 11:54 Pulse Rate 96 09/05/16 11:54 Respiratory Rate 20 09/05/16 11:54 Blood Pressure 146/80 09/05/16 11:54 Pulse Ox 94 09/05/16 11:54 - Head Head Exam: Atraumatic - Eye Eye Exam: No Scleral Icterus - Respiratory Respiratory Exam: Clear to Auscultation - Bilaterally, Breathing Non Labored - Cardiovascular Cardiovascular Exam: RRR, No Murmur, No Clicks, No Gallops, No Rubs, No JVD - GI/Abdominal GI/Abdominal Exam: Normal Bowel Sounds, Non Tender, Non Distended, Soft - Extremities Extremities Exam: No Clubbing Present, No Cyanosis Present, +1 Edema - Neurological Neurological Exam: Alert, Oriented x 3, No Facial Droop, Speech Intact / Clear, Moves All Extremities Equally - Psychiatric Psychiatric Exam: Normal Affect, Normal Mood Assessment and Plan - Patient Problems (1) Staphylococcus aureus bacteremia Current Visit: Yes Status: Acute (2) Diabetic infection of right foot Current Visit: Yes Status: Acute (3) Abscess of right foot Current Visit: Yes Status: Acute (4) Poorly controlled type 2 diabetes mellitus Current Visit: Yes Status: Acute (5) Hypertension Current Visit: Yes Status: Acute Qualifiers: Hypertension type: essential hypertension Qualified Description: Essential hypertension Qualifier Code(s): (I10) Essential (primary) hypertension (6) Gouty arthropathy Current Visit: Yes Status: Acute (7) Left hip pain Current Visit: Yes Status: Acute - Assessment / Plan Additional Assessment/Plan Details: The patient complained to the nurse today of left hip pain and hip pain bilaterally. Given his bacteremia, I think we need to do an MRI scan of his hips to make sure there is no evidence of seeding in the hips. Arranged for PICC line placement tomorrow. Arranged follow-up with infectious disease on Saturday morning. Tomorrow, dose him with a dose of Invanz 1 to cover him for 24 hours until home IV antibiotics can be arranged in [place], [place]. Pain control for pain. Try to arrange wound VAC therapy on an outpatient basis and I'll discuss with therapy later.
--- NOTE | 2016-09-05 15:42 | PT.PROG ---
Progress Note Progress Note: S. Patient states that he is very tired this morning, reporting he is "tired to the bone" and does not want to do any exercises. Patient reports that his foot is not any more sore than previously. O. Treatment consisted of dressing removal, wound cleanser, repacking with Iodoform, ABD pad, Kirlix, and coban. Patient continues to have heavy sanguineous drainage with strike through the ABD pad and Kirlix upon removal. A. Patient continues to struggle with weakness, and refused therapy this morning and only wanted his dressing changed. wound vac would be recommended. P. Continue POC.
--- NOTE | 2016-09-05 15:49 | PT.PROG ---
Progress Note Progress Note: S. Patient stated that he would like a cushion for his chair and he would like to go for a walk. O. Patient ambulated 100 feet with walker. Patient was left in his chair with alarm and call light. He was given a ROHO cushion for his chair to help decrease pressure. A. Patient continues to be non-compliant to weight bearing status. He agreed to attempt to take pressure off his right foot with the walker during ambulation. Patient would continue to benefit from skilled therapy at this time. P. continue POC.
[2016-09-05] MEDS: ACIDOPHILUS/BULGARICUS CHEWABLE TABLET PO SCH ×2 (16:02→20:55)
--- NOTE | 2016-09-05 16:04 | OT.PROG ---
Progress Note Progress Note: S: pt states that he is not sure when he'll be ready for home. 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 O: pt was seen in his room in the a.m. and was educated on donning and doffing of LE garments with A.E. AFter demonstration, pt completed donning and doffing of socks with sock aid and scale tester with mod Ind. A: pt may continue to practice with A.E. and work on safety through transfers. P: Continue per plan of care.
[2016-09-06] MEDS: ceFAZolin Inj 2gm (Premix) 2 GM in Dextrose 1 BAG IV SCH (03:40)
[2016-09-06 04:26] VITALS: RESP 16; TEMP 97.2
[2016-09-06 05:50] LABS: BASOPHILS # (AUTO) 0.02 10*3/UL; BASOPHILS % (AUTO) 0.3 % (0-1); EOSINOPHILS % (AUTO) 2.4 % (0-8); HEMATOCRIT 36.3 % (42.0-52.0); HEMOGLOBIN 12.4 g/dL (14.0-18.0); IMM GRAN % (AUTO) 1.1 % (0-5); IMM GRAN# (AUTO) 0.07 10*3/UL; LYMPHOCYTES # (AUTO) 0.71 10*3/uL; LYMPHOCYTES % (AUTO) 11.3 % (10-50); MEAN CORPUSCULAR HEMOGLOBIN 32.1 PG (27-31); MEAN CORPUSCULAR HGB CONC 34.2 g/dL (33-37); MEAN PLATELET VOLUME 10.2 FL (7.4-12.2); MONOCYTES # (AUTO) 0.43 10*3/UL (0.3-0.8); MONOCYTES % (AUTO) 6.9 % (5-15); NEUTROPHILS # (AUTO) 4.88 10*3/UL; RDW COEFFICIENT OF VARIATION 14.6 % (11.5-14.5); RED BLOOD COUNT 3.86 10^6/uL (4.70-6.10); WHITE BLOOD COUNT 6.26 10^3/uL (4.8-10.8)
[2016-09-06 05:51] LABS: PLATELET MORPHOLOGY COMMENT NORMAL MORPHOLOGY (NORM)
[2016-09-06 06:02] LABS: BLOOD UREA NITROGEN 27 mg/dL (7-22); CALCIUM 7.7 mg/dL (8.7-10.7); CHLORIDE 102 meq/L (98-112); EST GLOMERULAR FILTRATION > 60 (>60 ml/min/1.73m(2)); GLUCOSE 135 mg/dL (78-110); POTASSIUM 3.7 meq/L (3.8-5.2); SODIUM 132 meq/L (135-145)
--- NOTE | 2016-09-06 06:52 | DCSUMMARY ---
Hospitalization Summary Admit Date: 09/02/16 Discharge Date: 09/06/16 Primary Diagnosis:: staph aureus bacteremia. Secondary Diagnosis:: Right foot abscess status post incision and drainage. Hospital Course: This is a very pleasant 56-year-old male who has diabetes mellitus type II, hypertension, who presents with right foot redness and erythema for 3 days and 3 weeks of feeling tired and having erratic blood sugars. He was admitted, and found to have an abscess of his right foot. The patient had an orthopedics consult and orthopedics took the patient to operating room on the and did an incision and drainage and is currently packed with iodoform gauze and the plan is to do wound VAC as an outpatient. That has been arranged. Blood cultures were done and it showed staph aureus bacteremia. The bacteria was sensitive on sensitivities. His antibiotics were decreased from Unasyn and vancomycin to Ancef. He is on day 2 of Ancef therapy. We have arranged an infectious disease follow-up appointment for him on Saturday for arrangement of home IV antibiotics. We will place a PICC line this afternoon. Blood cultures are now negative to 36 hours on the second set and will be officially negative at 11:30 AM today, presuming no growth. If there is growth, we will notify the outpatient center to cancel the PICC line. Given that the patient has Staphylococcus aureus bacteremia, we arranged an outpatient transesophageal echocardiogram as it's not a service that we can do here. We spoke with Dr. Ch, who is able to do the procedure today and we will send him to [facility] [place], [place] on an outpatient stay for his transesophageal echocardiogram and PICC line that we have arranged. The patient's diabetes has been fairly well-controlled in the hospital stay, and we've actually had to back off on his insulin a bit. I think he would be a good candidate to resume metformin therapy as an outpatient but would like to get him establish with primary care doctor here first. He does have iron deficiency and we've scheduled him an evaluation with the surgeon for a screening colonoscopy in the next 6 weeks. He had some mild hip pain yesterday but attributed to sitting in the chairs. He states that he felt significantly better when he walked. Today, no completes chest pain, no shortness breath, no nausea or vomiting. Assessment and Plan: 1. As per discharge assessments noted 2. Disposition: Patient is discharged home 3. Condition on discharge, stable and improved. 4. Diet: regular diet/diabetic diet 5. Activities: resume normal activities/as per physical therapy with this foot 6. Follow-Up: 1. Dr. Ch today, Dr. Bear will try to arrange for a dose of ertapenem today. 2. Primary care provider in the next 7-10 days, 3. Surgeon in 6 weeks. 4. Infectious disease on Saturday. 7. Medications at the Time of Discharge: Home Medications Medication Instructions Recorded Confirmed Type Allopurinol 300 mg PO DAILY 09/02/16 09/02/16 History Aspirin [Aspir-Low] 81 mg PO DAILY 09/02/16 09/02/16 History Captopril/Hydrochlorothiazide 1 each PO DAILY 09/02/16 09/02/16 History [Captopril-Hctz 25-25 mg Tablet] Gemfibrozil 1,200 mg PO DAILY 09/02/16 09/02/16 History Insulin Aspart [Novolog Flexpen] 09/02/16 History Acidophilus/Bulgaricus [Lactinex] 4 tab PO TID #360 tab.chew 09/05/16 Rx HYDROcodone/APAP 7.5/325 Tab 1 - 2 tab PO Q4H PRN #40 tab 09/05/16 Rx [[place] 7.5/325 Tab] Insulin Glargine SoloStar Inj 50 unit SUBCUT BID #2 09/05/16 09/02/16 Rx [Lantus SoloStar Inj] Potassium Chloride [Klor-Con] 20 meq PO DAILY #10 tab 09/05/16 Rx ceFAZolin Inj 2gm (Premix) [Ancef 2 gm IV Q8H #126 bag 09/05/16 Rx Inj 2gm (Premix)] 8. Time, care, counseling and coordination of care for this discharge is greater than 30 minutes. Exam - Vitals Vital Signs: Vital Signs Temperature 97.2 F Temperature Source Temporal Artery Scan Pulse Rate [Apical] 78 Pulse Rate [Pulse Oximeter 74 Left] Pulse Rate 97 Respiratory Rate 16 Blood Pressure [Right Arm] 118/67 Blood Pressure [Left Arm] 108/63 Blood Pressure 105/72 Pulse Ox 93 Oxygen Flow Rate 1 Oxygen Flow Rate 2 Oxygen Delivery Method Room Air Height 5 ft 10 in Weight 285 lb 8 oz - General General Appearance: POSITIVE: No Acute Distress, Cooperative - Eye Eye Exam: POSITIVE: No Scleral Icterus - Respiratory Respiratory Exam: POSITIVE: Clear to Auscultation - Bilaterally, Breathing Non Labored - Cardiovascular Cardiovascular Exam: POSITIVE: RRR, No Murmur, No Clicks, No Gallops, No Rubs, No JVD - GI/Abdominal GI/Abdominal Exam: POSITIVE: Normal Bowel Sounds, Non Tender, Non Distended, Soft - Extremities Extremities Exam: POSITIVE: No Clubbing Present, No Cyanosis Present, +1 Edema Additional Extremities Exam Details: Right foot wrapped and dressed. Wound VAC to go on later. - Neurological Neurological Exam: POSITIVE: Alert, Oriented x 3, No Facial Droop, Speech Intact / Clear, Moves All Extremities Equally Data Perinent Studies: Laboratory Results 09/02/16 09/02/16 09/03/16 Range/Units 13:44 13:55 06:10 WBC 15.16 H 14.23 H (4.8-10.8) 10^3/uL RBC 4.88 4.38 L (4.70-6.10) 10^6/uL Hgb 15.2 13.7 L (14.0-18.0) g/dL Hct 44.3 40.2 L (42.0-52.0) % MCV 90.8 H 91.8 H (80-90) FL MCH 31.1 H 31.3 H (27-31) PG MCHC 34.3 34.1 (33-37) g/dL RDW Std Deviation 46.1 47.5 (39-50) fL RDW Coeff of Lyndsey 14.1 14.4 (11.5-14.5) % Plt Count 194 159 (140-350) 10*3/uL MPV 11.0 10.7 (7.4-12.2) FL Immature Gran % (Auto) 0.5 0.7 (0-5) % Neut % (Auto) 87.6 H 86.9 H (50-80) % Lymph % (Auto) 5.3 L 5.4 L (10-50) % Payne % (Auto) 6.4 6.6 (5-15) % Eos % (Auto) 0.1 0.3 (0-8) % Baso % (Auto) 0.1 0.1 (0-1) % Immature Gran # (Auto) 0.07 0.10 10*3/UL Neut # (Auto) 13.28 12.37 10*3/UL Lymph # (Auto) 0.80 0.77 10*3/uL Payne # (Auto) 0.97 H 0.94 H (0.3-0.8) 10*3/UL Eos # (Auto) 0.02 0.04 10*3/UL Baso # (Auto) 0.02 0.01 10*3/UL WBC Morphology Comment Normal morphology Normal morphology (NORM) Plt Morphology Comment Normal morphology Normal morphology (NORM) RBC Morph Comment Normal morphology Normal morphology (NORM) ESR 69 H (0-15) MM/HR Sodium 126 L 126 L (135-145) meq/L Potassium 4.0 3.7 L (3.8-5.2) meq/L Chloride 91 L 93 L (98-112) meq/L Carbon Dioxide 23 24 (23-33) meq/L Anion Gap 12 9 (5-20) BUN 31 H 29 H (7-22) mg/dL Creatinine 1.1 1.0 (0.70-1.50) mg/dL Estimated GFR > 60 > 60 (>60 ml/min/1.73m(2)) BUN/Creatinine Ratio 28.18 H 29.00 H (6-20) Glucose 340 H 262 H (78-110) mg/dL Mean Blood Glucose mg/dL Hemoglobin A1c (4.2-6.0) % Calculated Osmolality 281.0 276.0 (267-292) mOsm/kg Lactic Acid 3.1 H (0.70-2.10) MMOL/L Uric Acid 5.2 (3.8-8.5) mg/dl Calcium 8.1 L 7.2 L (8.7-10.7) mg/dL Iron (50 - 150) mcg/dL TIBC (250 - 400) mcg/dL % Saturation (14 - 50) % Total Bilirubin 2.7 H 2.2 H (0.3-1.2) mg/dL AST 53 40 (21-57) IU/L ALT 49 49 (21-72) IU/L Alkaline Phosphatase 245 H 234 H (38-126) IU/L C-Reactive Protein 18.3 H (0.0-0.9) mg/dL Total Protein 7.5 6.8 (6.1-8.0) g/dL Albumin 2.8 L 2.5 L (3.5-4.8) g/dL Globulin 4.7 H 4.3 H (2.50-4.10) g/dL Albumin/Globulin Ratio 0.50 L 0.50 L (1.3-2.0) mg/g Triglycerides (44-200) mg/dL Cholesterol (120-200) mg/dL LDL Cholesterol, Calc mg/dL VLDL Cholesterol (0-40) mg/dL HDL Cholesterol (40-150) mg/dL Cholesterol/HDL Ratio (0-4.0) RATIO Vitamin B12 (180 - 914) ng/L Folate (>=4.0) mcg/L Vancomycin Trough (10.0-20.0) mcg/mL 09/03/16 09/04/16 09/06/16 Range/Units 08:35 07:38 05:20 WBC 15.97 H 6.26 (4.8-10.8) 10^3/uL RBC 4.62 L 3.86 L (4.70-6.10) 10^6/uL Hgb 14.8 12.4 L (14.0-18.0) g/dL Hct 42.4 36.3 L (42.0-52.0) % MCV 91.8 H 94.0 H (80-90) FL MCH 32.0 H 32.1 H (27-31) PG MCHC 34.9 34.2 (33-37) g/dL RDW Std Deviation 47.3 47.9 (39-50) fL RDW Coeff of Lyndsey 14.5 14.6 H (11.5-14.5) % Plt Count 230 142 (140-350) 10*3/uL MPV 10.6 10.2 (7.4-12.2) FL Immature Gran % (Auto) 1.2 1.1 (0-5) % Neut % (Auto) 80.4 H 78.0 (50-80) % Lymph % (Auto) 11.6 11.3 (10-50) % Payne % (Auto) 5.4 6.9 (5-15) % Eos % (Auto) 1.1 2.4 (0-8) % Baso % (Auto) 0.3 0.3 (0-1) % Immature Gran # (Auto) 0.19 0.07 10*3/UL Neut # (Auto) 12.85 4.88 10*3/UL Lymph # (Auto) 1.86 0.71 10*3/uL Payne # (Auto) 0.86 H 0.43 (0.3-0.8) 10*3/UL Eos # (Auto) 0.17 0.15 10*3/UL Baso # (Auto) 0.04 0.02 10*3/UL WBC Morphology Comment Normal morphology Normal morphology (NORM) Plt Morphology Comment Normal morphology Normal morphology (NORM) RBC Morph Comment Normal morphology Normal morphology (NORM) ESR (0-15) MM/HR Sodium 130 L 132 L (135-145) meq/L Potassium 3.7 L 3.7 L (3.8-5.2) meq/L Chloride 98 102 (98-112) meq/L Carbon Dioxide 21 L 23 (23-33) meq/L Anion Gap 11 7 (5-20) BUN 26 H 27 H (7-22) mg/dL Creatinine 1.3 1.0 (0.70-1.50) mg/dL Estimated GFR 57 > 60 (>60 ml/min/1.73m(2)) BUN/Creatinine Ratio 20.00 27.00 H (6-20) Glucose 129 H 135 H (78-110) mg/dL Mean Blood Glucose 218.362 mg/dL Hemoglobin A1c 9.14 H (4.2-6.0) % Calculated Osmolality 276.0 280.0 (267-292) mOsm/kg Lactic Acid 1.1 (0.70-2.10) MMOL/L Uric Acid (3.8-8.5) mg/dl Calcium 7.8 L 7.7 L (8.7-10.7) mg/dL Iron 40 L (50 - 150) mcg/dL TIBC 132 L (250 - 400) mcg/dL % Saturation 30 (14 - 50) % Total Bilirubin (0.3-1.2) mg/dL AST (21-57) IU/L ALT (21-72) IU/L Alkaline Phosphatase (38-126) IU/L C-Reactive Protein (0.0-0.9) mg/dL Total Protein (6.1-8.0) g/dL Albumin (3.5-4.8) g/dL Globulin (2.50-4.10) g/dL Albumin/Globulin Ratio (1.3-2.0) mg/g Triglycerides 97 (44-200) mg/dL Cholesterol 56 L (120-200) mg/dL LDL Cholesterol, Calc 23.600 mg/dL VLDL Cholesterol 19 (0-40) mg/dL HDL Cholesterol 13 L (40-150) mg/dL Cholesterol/HDL Ratio 4.30 H (0-4.0) RATIO Vitamin B12 >1400 H (180 - 914) ng/L Folate >20.0 (>=4.0) mcg/L Vancomycin Trough 12.86 (10.0-20.0) mcg/mL Patient Problems - Patient Problem List (1) Staphylococcus aureus bacteremia Current Visit: Yes Status: Acute (2) Diabetic infection of right foot Current Visit: Yes Status: Acute (3) Abscess of right foot Current Visit: Yes Status: Acute (4) Poorly controlled type 2 diabetes mellitus Current Visit: Yes Status: Acute (5) Hypertension Current Visit: Yes Status: Acute Qualifiers: Hypertension type: essential hypertension Qualified Description: Essential hypertension Qualifier Code(s): (I10) Essential (primary) hypertension (6) Gouty arthropathy Current Visit: Yes Status: Acute (7) Left hip pain Current Visit: Yes Status: Acute
[2016-09-06] MEDS ORDERED: POTASSIUM CHLORIDE 20 MEQ TAB PO SCH (09:00)
--- NOTE | 2016-09-06 09:40 | OTI REPORT ---
Thank you for the referral of Kuldip Obregon. He was seen on 09/04/16 for an occupational therapy evaluation secondary to generalized weakness. SUBJECTIVE: The patient is a 56-year-old male who is being seen secondary to having a right foot wound that physical therapy has been addressing prior to today. The patient is waiting on a wound vac. 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 His goal is to return to work. He reports that he has neuropathy in bilateral lower extremities. The patient has had Type II diabetes for quite some time. The patient lives at home in a one level home in between [facility]. He reports that he typically does everything on his own. He does have four stairs going in and out of his front door. He does not have any adaptive equipment in his home. He has a bathtub/shower and does have a grab bar around it. PAST MEDICAL HISTORY: Past medical history can be found in the patient's medical record. OBJECTIVE FINDINGS: Activities of daily living: Today the patient was educated and instructed in adaptive equipment. He is not going to be issued any adaptive equipment at this time as he does not know if his insurance will pay for it. The patient was able to doff socks but he had a lot of difficulty donning socks. Range of motion: The patient's upper extremity range of motion is within functional limits. Strength: Upper extremity strength was 4/5. Transfers: The patient is having difficulty with sit to stands and he requires mod assist to stand up. The patient is thinking of a lift chair once he returns home. ASSESSMENT: At this time the patient was open to some of the adaptive equipment; however, he feels like he may be able to get some from another place. He would benefit from skilled therapy to work on functional transfers, strengthening activities, functional mobility, and overall independence with ADLs. Short-Term Goals: To be met by discharge from inpatient: Patient will be able to complete sit to stands independently. Patient will be able to take a shower independently with use of seat and grab bars. Patient will increase upper extremity strength to 5/5 to increase his ability to complete sit to stands and functional transfers. Patient will be able to complete a toilet transfer independently. Patient will be able to dress self independently with or without use of adaptive equipment. Long-Term Goals: To be met following discharge from inpatient: Patient will be discharged home demonstrating safety and independence with all activities of daily living. TREATMENT PLAN: Patient will be seen B.I.D during the week and one time per day over the weekend as an inpatient to address the above goals and objectives. INITIAL TREATMENT: Treatment today consisted of the initial evaluation followed by the patient completing lower extremity dressing. He needed max assist for socks and max assist to come from sit to stand. We worked on upper extremity range of motion and the patient was educated on adaptive equipment for home. He is going to think about the adaptive equipment that he might need. ERIKA
--- NOTE | 2016-09-06 11:13 | OT PM DAY ---
Diagnosis : I&D of Right Foot/Generalized Weakness PM - Occupational Therapy S: The patient states he is not really feeling any pain in his foot. He agreed to participate in some therapy. O: The patient was seen in his room. He completed sit to stands with stand by assist. He then transferred out of the room; OT co-treated with PT. After completing transfer, the patient was educated on use of theraband and theraputty to maintain his upper extremity strength and range of motion. A: The patient would continue to benefit from therapy to increase his activity tolerance and safety during transfers. P: Continue seeing patient BID during the week and one time per day over the weekend for upper extremity strengthening, ADLs, adn overall functional mobility. We will continue to monitor the patient's wound. STEVAND
== END 2016-09-06 07:12 | disposition home or self-care (01) | DRG 581 ==
LOC: ER 13:25 → MED/SURG 15:51 → OPS 17:10 → MED/SURG 18:27
PROVIDERS: ADMIT Internal Medicine; ATTEND Internal Medicine
PROC: 0J9Q0ZZ Drainage of Right Foot Subcutaneous Tissue and Fascia, Open Approach (ICD-10-PCS; principal; 2016-09-02 17:05)
DX: L02.611 Cutaneous abscess of right foot (principal); B95.61 Methicillin susceptible Staphylococcus aureus infection as the cause of diseases classified elsewhere; E11.65 Type 2 diabetes mellitus with hyperglycemia; I10 Essential (primary) hypertension; M10.9 Gout, unspecified; M25.552 Pain in left hip
CPT/HCPCS: 36415; 73630; 80048; 80053; 80061; 80202; 82607; 82746; 82948; 83036; 83540; 83550; 83605; 84550; 85025; 85652; 86140; 87040; 87070; 87075; 87077; 87186; 87205; 94761; 97530; 97535; 99284; A4216; J0295; J0690; J1650; J1885; J2250; J3010; J3370; J7030; J7040; J7050